=== PATIENT | male | born 1960 | race Caucasian/White ===

== ENCOUNTER 2017-08-17 17:39 | Emergency (ER) | payer MEDICAID ==
--- NOTE | 2017-08-17 18:03 | ED Physician Chart ---
ED Chief Complaint/HPI - Patient Information Date Seen:: 08/17/17 Time Seen:: 18:02 Chief Complaint:: Head laceration History of Present Illness:: 57 yo male was brought by BLS to ER for occipital laceration after a fall due to alcohol intoxication. ED Review of Systems - Review of Systems General/Constitutional: No fever Skin: Skin lesions Head: Headache Eyes: No pain ENT: No nasal drainage Neck: No neck pain Cardio Vascular: No chest pain Pulmonary: No SOB GI: No nausea, No vomiting Musculoskeletal: No bone or joint pain Neurological: No focal symptoms ED Past Medical History - Past Medical History Past Medical History: No significant medical hx Social History: Smoker, Alcohol, No Drug Use Surgical History: None Family Medical History - Family Member Mother History Unknown: Yes ED Physical Exam - Physical Examination General/Constitutional: Awake Other Head comments:: 4cm occipital scalp laceration, with active bleeding Eyes: PERRL ENMT: Nasal exam nl Neck: No nuchal rigidity Respiratory: No Wheeze/Rhonchi/Rales Cardio Vascular: RRR, No murmur, gallop, rubs, NL S1 S2 GI: No tenderness/rebounding/guarding Extremities: normal strength in all extremities Neuro/Psych: No focal deficits ED Labs/Radiology/EKG Results - Radiology Results Results: CT head: no acute abnormalities, cerebral atrophy CT C-spine: no acute abnormalities, mild degenerative changes ED Assessment - Assessment General Assessment: Occipital laceration Alcohol intoxication Assessment/Comments:: Laceration repair Bacitracin topical apply Keflex 500mg po x 1 Tdap D/c home Keflex 500mg bid x 7 days F/u PCP or return to ER for removal of dolly in 10-14 days Location:: Occipital laceration was cleaned with NS, hydrogen peroxide and betadine. 5 dolly were used to close the laceration. Applied Bacitracin topically. Patient tolerated the procedure well without complication. Wound Length: 4 cm ED Septic Shock - . Is Septic Shock (SBP<90, OR Lactate>4 mmol\L) present?: No ED Reassessment (Disposition) - Reassessment Reassessment Condition:: Improved - Patient Disposition Discharge/Transfer:: Home ED Discharge Plan - Patient Disposition Admit/Discharge/Transfer: PT DISCHARGED HOME Condition at Disposition: Improved Prescriptions: Cephalexin [Keflex] 500 mg PO BID #14 cap Instructions: Head Injury, Adult, Laceration Care, Adult, [id number]
[2017-08-17] MEDS ORDERED: Bacitracin pkt 1 gm Pkt TP ONE (21:18)
[2017-08-17] MEDS ORDERED: Bacitracin pkt 1 gm Pkt TP STA (21:28)
--- NOTE | 2017-08-18 07:46 | Diagnostic Imaging Report ---
CT scan of the brain without intravenous contrast HISTORY: Headache, trauma Total DLP equals 593 CTDI equals 34.0 Axial sections were obtained from the base of the skull to the vertex. There is prominence/enlargement of the ventricular system size. Associated enlargement of cerebral sulci and subarachnoid cisterns. Findings are consistent with changes of generalized cerebral atrophy. No acute parenchymal abnormalities. No acute cerebral hemorrhage. Hypodensity is seen within the supratentorial white matter regions without mass effect. Changes are somewhat remarkable in view the patient's age. The findings may be associated with chronic small vessel ischemic disease. In view of patient's age, clinical correlation and follow-up recommended. An MRI exam may be helpful. No extra-axial masses or abnormal fluid collections. IMPRESSION: 1. No acute abnormalities 2. Cerebral atrophy 3. Supratentorial white matter changes that may reflect chronic small vessel ischemic disease. The findings are somewhat unremarkable in view of the patient's age. Clinical correlation and if necessary, an MRI exam may be helpful for further assessment.
--- NOTE | 2017-08-18 07:48 | Diagnostic Imaging Report ---
CT scan cervical spine HISTORY: Pain Total DLP equals 291 CTDI equals 15.9 Axial sections were obtained to the cervical spine. Additional sagittal and coronal reformatted images are provided. The exam demonstrates small spur formation about the endplates of C4 and to a somewhat greater degree C5 and C6. Alignment is normal. No acute abnormalities. No fractures. The prevertebral soft tissues appear normal. Atherosclerotic calcification noted in the right carotid artery region. IMPRESSION: 1. No acute abnormalities 2. Mild degenerative change 3. Atherosclerotic vascular changes
== END 2017-08-17 22:00 | disposition home or self-care (01) ==
LOC: ER 17:39
DX: S01.91XA Laceration without foreign body of unspecified part of head, initial encounter (principal); F17.200 Nicotine dependence, unspecified, uncomplicated; X58.XXXA Exposure to other specified factors, initial encounter; Y93.89 Activity, other specified; Y92.89 Other specified places as the place of occurrence of the external cause; Y99.8 Other external cause status
CPT/HCPCS: 12002; 70450-TC; 72125-TC; Z7502; Z7610